=== PATIENT | female | born 1970 | race Caucasian/White ===

== ENCOUNTER 2018-04-25 10:55 | Emergency (ER) | payer OTHER ==
[2018-04-25] MEDS ORDERED: ONDANSETRON DISINTEGRATING 4 MG TAB PO ONE (11:00)
[2018-04-25] MEDS ORDERED: NS 1,000 ML IV ONE (13:47)
[2018-04-25] MEDS ORDERED: ONDANSETRON 4 MG/2 ML VIAL IVP ONE (13:48)
--- NOTE | 2018-04-25 13:51 | EDPHY ---
H & P Stated Complaint: N/V, headache for 2 hours Time Seen by Provider: 04/25/18 14:00 HPI/ROS: CHIEF COMPLAINT: "I was throwing up really bad," headache HISTORY OF PRESENT ILLNESS: The patient is a 47 y/o female complaining of persistent vomiting and frontal headache upon waking this morning. She does not drink alcohol frequently, but did drink approximately 3 glasses of wine last night and thinks that could be contributing to her symptoms today. She has not taken anything for her headache yet due to the vomiting. She denies vision changes, weakness, paresthesias, fever, recent illness, recent trauma. She has had similar symptoms previously, but not recently. She has no history of migraine headaches though her sister does. She also notes she's "been under a lot of stress recently" and has been sad since caring for her mother who underwent open heart surgery. She says, "I feel like if I take care of myself, eat well, and do yoga, then I feel okay." She denies history of depression, plan or desire to hurt herself, or any prior attempts to hurt herself. REVIEW OF SYSTEMS: A ten point review of systems was performed and is negative with the exception of the items mentioned in the HPI. Past medical history: Denies Past surgical history: Denies Family history: Sister with migraines Social history: Friend at bedside. Lives in [place]. Employed. PCP: Dr. Hang Monroe. General Appearance: Alert. Vital signs reviewed. Eyes: Pupils equal and round, no conjunctival injection, no discharge. Anicteric. ENT, Mouth: Mucous membranes are moist, no oropharyngeal erythema or edema. Neck: No lymphadenopathy, supple. Respiratory: Lungs are clear to auscultation; no wheezes, rales, or rhonchi. Cardiovascular: Regular rate and rhythm; no murmur, rub, or gallop. Gastrointestinal: Abdomen is soft and nontender, no masses or organomegaly. Skin: Warm and dry, no rashes on exposed skin, normal color. Back: Nontender to palpation over the thoracolumbar spine. No CVAT. Extremities: No lower extremity edema, no calf tenderness or swelling. Neurological: Alert and oriented. Moving all four extremities easily and equally. Face symmetric. Psychiatric: Normal affect. - Personal History Current Tetanus Diphtheria and Acellular Pertussis (TDAP): Yes Tetanus Vaccine Date: 1999 - Medical/Surgical History Hx Asthma: Yes Hx Chronic Respiratory Disease: No Hx Diabetes: No Hx Cardiac Disease: No Hx Renal Disease: No Hx Cirrhosis: No Hx Alcoholism: No Hx HIV/AIDS: No Hx Splenectomy or Spleen Trauma: No Other PMH: pmh- asthma - Social History Smoking Status: Former smoker Constitutional: Initial Vital Signs Temperature (C) 36.4 C 04/25/18 10:56 Heart Rate 71 04/25/18 10:56 Respiratory Rate 16 04/25/18 10:56 Blood Pressure 112/72 04/25/18 10:56 O2 Sat (%) 96 04/25/18 10:56 O2 Delivery Mode Room Air Allergies/Adverse Reactions: No Known Allergies Allergy (Unverified 02/26/13 09:51) Home Medications: Medication Instructions Recorded Miscellaneous Medical Supply [NO 1 ea MISC AD 02/26/13 HOME MEDS] Ondansetron Odt [Zofran Odt 4 mg 4 mg PO Q4 PRN #10 tab 04/25/18 (RX)] Medical Decision Making ED Course/Re-evaluation: This is a healthy 47 y/o female who presents with a several-hour history of headache and vomiting after drinking wine last night. Neuro exam is nonfocal. Plan for IV, labs, symptomatic management. 1L IV NS, 15mg IV Toradol, 4mg IV Zofran ordered. 2:50 p.m.. Patient re-evaluated. She no longer feel sick to her stomach. She is on her for L of IV fluids, normal saline. After 15 mg IV Toradol she continues with headache. She feels that she could tolerate an oral medication. She is being given 650 mg Tylenol with some crackers. 3:30 p.m.. She feels somewhat better but still has headache. No nausea or vomiting, but still feels somewhat dehydrated. She did have profuse vomiting earlier. Not sure that she can adequately rehydrate herself at home at this point in time and will infuse additional 500 mL normal saline IV prior to discharge. She is comfortable with this plan. Differential Diagnosis: Headache including but not limited to subarachnoid hemorrhage, migraine headache , tension headache and infectious causes such as meningitis, pharyngitis and sinusitis. He I also considered a differential diagnosis of vomiting including but not limited to gastritis, pancreatitis, gastroenteritis, hangover. - Data Points Medications Given: Discontinued Medications Acetaminophen (Tylenol) 650 mg PO EDNOW ONE Stop: 04/25/18 15:06 Last Admin: 04/25/18 15:06 Dose: 650 mg Sodium Chloride (Ns) 1,000 mls @ 0 mls/hr IV ONCE ONE PRN Reason: Wide Open Stop: 04/25/18 13:48 Last Admin: 04/25/18 13:50 Dose: 1,000 mls Ketorolac Tromethamine (Toradol) 15 mg IVP EDNOW ONE Stop: 04/25/18 14:12 Last Admin: 04/25/18 14:17 Dose: 15 mg Ondansetron HCl (Zofran Odt) 4 mg PO EDNOW ONE Stop: 04/25/18 11:01 Last Admin: 04/25/18 11:02 Dose: 4 mg Ondansetron HCl (Zofran) 4 mg IVP EDNOW ONE Stop: 04/25/18 13:49 Last Admin: 04/25/18 13:50 Dose: 4 mg Departure - Departure Disposition: Home, Routine, Self-Care Clinical Impression: Headache Qualifiers: Headache type: other headache syndrome Qualified Code(s): G44.89 - Other headache syndrome Vomiting Qualifiers: Vomiting type: unspecified Vomiting Intractability: non-intractable Nausea presence: with nausea Qualified Code(s): R11.2 - Nausea with vomiting, unspecified Condition: Good Instructions: Acute Headache (ED), Acute Nausea and Vomiting (ED) Additional Instructions: Follow up with the resources provided. Contact [facility] to request referrals to in -network counselors if you wish to go through insurance for this. Use Zofran as prescribed as needed for nausea and vomiting. Return to the ED for any worsening of condition. Referrals: HANG MONROE [Other] - As per Instructions [facility] [Provider Group] - As per Instructions Prescriptions: Ondansetron Odt [Zofran Odt 4 mg (RX)] 4 mg PO Q4 PRN #10 tab PRN Reason: nausea Report Scribed for: Joy Major Report Scribed by: Tory Graf Date of Report: 04/25/18 Time of Report: 14:09 Physician Review and Approval Statement: 04/25/18 13:51 Portions of this note were transcribed by the medical social consultant. I Dr. Joy Major, personally performed the history, physical exam, and medical decision- making; and confirmed the accuracy of the information in the transcribed note.
[2018-04-25] MEDS ORDERED: KETOROLAC 30 MG/1 ML SDV IVP ONE (14:11)
[2018-04-25] MEDS ORDERED: ACETAMINOPHEN 325 MG TAB ONE (15:04)
[2018-04-25] MEDS ORDERED: ACETAMINOPHEN 325 MG TAB PO ONE (15:05)
[2018-04-25] MEDS ORDERED: NS 500 ML IV ONE (15:30)
[2018-04-25 15:54] VITALS: BP 98/50
== END 2018-04-25 15:56 | disposition home or self-care (01) ==
DX: G44.89 Other headache syndrome (principal); R11.2 Nausea with vomiting, unspecified; E86.9 Volume depletion, unspecified; J45.909 Unspecified asthma, uncomplicated; Z87.891 Personal history of nicotine dependence
CPT/HCPCS: 96374; J1885; J2405